=== PATIENT | male | born 1975 | race Caucasian/White ===

== ENCOUNTER 2018-07-15 11:43 | Emergency (ER) | payer MEDICAID ==
[2018-07-15 12:14] VITALS: BP 141/99
[2018-07-15] MEDS ORDERED: Sodium Chloride 0.9% 1,000 ML IV ONE (12:45)
[2018-07-15] MEDS ORDERED: Ondansetron 4 MG/2 ML SDV IV ONE ×2 (12:45→13:45)
[2018-07-15] MEDS ORDERED: HYDROmorphone 1 MG/ML Syringe IVPUSH ONE (12:45)
[2018-07-15] MEDS: Sodium Chloride 0.9% 10 ML Syringe FLUSH PRN ×2 (12:57→14:08)
[2018-07-15 13:23] LABS: ANION GAP 15.5; CHLORIDE,CL 99 mmol/L (101-111); SODIUM,NA 135 mmol/L (135-145)
[2018-07-15] MEDS ORDERED: Sucralfate 1 GM Tab PO ONE (13:44)
[2018-07-15] MEDS ORDERED: Pantoprazole 40 MG Vial IVPUSH ONE (13:44)
--- NOTE | 2018-07-15 15:22 | EDM.PDOC ---
Scribed by Gisella Luo 07/15/18 1518 for Devante Mueller MD ED HPI GENERAL MEDICAL PROBLEM - General Chief Complaint: Abdominal Pain Stated Complaint: stomach,fever Time Seen by Provider: 07/15/18 12:42 Source of Information: Reports: Patient, RN, RN Notes Reviewed History Limitations: Reports: No Limitations - History of Present Illness INITIAL COMMENTS - FREE TEXT/NARRATIVE: Patient presents to ER by POV with complaint of epigastric abdominal pain with nausea and vomiting. Patient was seen here 07/13/18 with similar complaint. He states he was improved following his last visit, but symptoms returned last evening but worse this morning. He cannot keep down any liquids or food. Denies fever or chills, radiating pain, diarrhea, constipation. Yesterday pt states he had a small loose dark stool. Onset Date: 07/14/18 Duration: Getting Worse Location: Reports: Abdomen Quality: Reports: Ache Severity: Severe Improves with: Reports: None Worsens with: Reports: None Associated Symptoms: Reports: No Other Symptoms Abdominal Pain Score (Numeric/FACES): 8 - Related Data Allergies Allergy/AdvReac Type Severity Reaction Status Date / Time No Known Allergies Allergy Verified 07/15/18 12:14 Home Meds: Home Meds Lisinopril 10 mg PO DAILY 09/05/17 [History] atorvaSTATin Calcium [Atorvastatin Calcium] 1 tab PO DAILY 07/13/18 [History] Past Medical History - Past Health History Medical/Surgical History: Denies Medical/Surgical History HEENT History: Reports: None Cardiovascular History: Reports: High Cholesterol, Hypertension Respiratory History: Reports: None Gastrointestinal History: Reports: None Genitourinary History: Reports: None Musculoskeletal History: Reports: None Neurological History: Reports: None Psychiatric History: Reports: None Endocrine/Metabolic History: Reports: None Hematologic History: Reports: None Immunologic History: Reports: None Oncologic (Cancer) History: Reports: None Dermatologic History: Reports: None - Infectious Disease History Infectious Disease History: Reports: Chicken Pox - Past Surgical History Head Surgeries/Procedures: Reports: None Other Cardiovascular Surgeries/Procedures: angiogram 6 months ago Social & Family History - Family History Family Medical History: Noncontributory - Tobacco Use Smoking Status *Q: Unknown Ever Smoked - Caffeine Use Caffeine Use: Reports: Coffee - Living Situation & Occupation Living situation: Reports: , with Family Occupation: Employed ED ROS GENERAL - Review of Systems Review Of Systems: ROS reveals no pertinent complaints other than HPI. ED EXAM, GI/ABD - Physical Exam Exam: See Below Exam Limited By: No Limitations General Appearance: Alert, WD/WN, No Apparent Distress Eyes: Bilateral: Normal Appearance Ears: Normal External Exam, Normal Canal, Hearing Grossly Normal, Normal TMs Nose: Normal Inspection, Normal Mucosa, No Blood Throat/Mouth: Normal Inspection, Normal Lips, Normal Teeth, Normal Gums, Normal Oropharynx, Normal Voice, No Airway Compromise Head: Atraumatic, Normocephalic Neck: Normal Inspection, Supple, Non-Tender, Full Range of Motion Respiratory/Chest: No Respiratory Distress, Lungs Clear, Normal Breath Sounds, No Accessory Muscle Use, Chest Non-Tender Cardiovascular: Normal Peripheral Pulses, Regular Rate, Rhythm, No Edema, No Gallop, No JVD, No Murmur, No Rub GI/Abdominal Exam: Normal Bowel Sounds, Soft, No Distention, No Abnormal Bruit, Tender (epigastric). No: Guarding, Rigid, Rebound (Male) Exam: Deferred Rectal (Males) Exam: Deferred Back Exam: Normal Inspection, Full Range of Motion, NT Extremities: Normal Inspection, Normal Range of Motion, Non-Tender, Normal Capillary Refill, No Pedal Edema Neurological: Alert, Oriented, Normal Cognition, Normal Gait, No Motor/Sensory Deficits Psychiatric: Normal Affect, Normal Mood Skin Exam: Warm, Dry, Intact, Normal Color, No Rash Course - Vital Signs Last Recorded V/S: Last Vital Signs Temp 35.9 C 07/15/18 12:10 Pulse 57 L 07/15/18 12:10 Resp 20 07/15/18 12:10 BP 141/99 H 07/15/18 12:10 Pulse Ox 100 07/15/18 12:10 - Orders/Labs/Meds Orders: Active Orders 24 hr Category Date Time Status Peripheral IV Care [RC] . DIRECTED Care 07/15/18 12:45 Active Sodium Chloride 0.9% [Saline Flush] Med 07/15/18 12:45 Active 10 ml FLUSH ASDIRECTED PRN Peripheral IV Insertion Adult [OM.PC] Stat Oth 07/15/18 12:44 Ordered Medication Orders Sodium Chloride (Saline Flush) 10 ml FLUSH ASDIRECTED PRN PRN Reason: Keep Vein Open Last Admin: 07/15/18 14:08 Dose: 10 ml Admin: 07/15/18 12:57 Dose: 10 ml Labs: Laboratory Tests 07/15/18 07/15/18 07/15/18 Range/Units 12:54 12:54 12:54 WBC 13.9 H (5.0-10.0) 10^3/uL RBC 5.12 (4.6-6.2) 10^6/uL Hgb 17.1 (14.0-18.0) g/dL Hct 47.1 (40.0-54.0) % MCV 92.0 (80-100) fL MCH 33.4 (27.0-34.0) pg MCHC 36.3 H (33.0-35.0) g/dL Plt Count 260 (150-450) 10^3/uL Neut % (Auto) 84.2 H (42.2-75.2) % Lymph % (Auto) 8.4 L (20.5-50.1) % [place] % (Auto) 7.1 (2-8) % Eos % (Auto) 0.1 L (1.0-3.0) % Baso % (Auto) 0.2 (0.0-1.0) % Sodium 135 (135-145) mmol/L Potassium 3.5 L (3.6-5.0) mmol/L Chloride 99 L (101-111) mmol/L Carbon Dioxide 24.0 (21.0-31.0) mmol/L Anion Gap 15.5 BUN 14 (7-18) mg/dL Creatinine 1.0 (0.6-1.3) mg/dL Est Cr Clr Drug Dosing 102.49 mL/min Estimated GFR (MDRD) > 60 BUN/Creatinine Ratio 14.00 Glucose 115 H (74-105) mg/dL Lactic Acid 1.6 (0.5-2.2) mmol/L Calcium 9.1 (8.4-10.2) mg/dl Total Bilirubin 0.9 (0.2-1.0) mg/dL AST 36 (10-42) IU/L ALT 19 (10-60) IU/L Alkaline Phosphatase 58 (42-121) IU/L Total Protein 7.8 (6.7-8.2) g/dl Albumin 4.6 (3.2-5.5) g/dl Globulin 3.2 Albumin/Globulin Ratio 1.44 Amylase 60 (28-100) U/L Lipase 38 (22-51) U/L Urine Color (YELLOW) Urine Appearance (CLEAR) Urine pH (5.0-9.0) Ur Specific [place] (1.005-1.030) Urine Protein (NEGATIVE) Urine Glucose (UA) (NEGATIVE) Urine Ketones (NEGATIVE) Urine Occult Blood (NEGATIVE) Urine Nitrite (NEGATIVE) Urine Bilirubin (NEGATIVE) Urine Urobilinogen (0.2-1.0) mg/dL Ur Leukocyte Esterase (NEGATIVE) Urine RBC /HPF Urine WBC (0-5/HPF) /HPF Ur Epithelial Cells /HPF Amorphous Sediment (0/HPF) /HPF Urine Bacteria (0-FEW/HPF) /HPF Urine Mucus /LPF Urine Opiates Screen (NEGATIVE) Ur Oxycodone Screen (NEGATIVE) Urine Methadone Screen (NEGATIVE) Ur Barbiturates Screen (NEGATIVE) U Tricyclic Antidepress (NEGATIVE) Ur Phencyclidine Scrn (NEGATIVE) Ur Amphetamine Screen (NEGATIVE) U Methamphetamines Scrn (NEGATIVE) Urine MDMA Screen (NEGATIVE) U Benzodiazepines Scrn (NEGATIVE) Urine Cocaine Screen (NEGATIVE) U Marijuana (THC) Screen (NEGATIVE) Ethyl Alcohol 5 mg/dL 07/15/18 07/15/18 Range/Units 14:17 14:17 WBC (5.0-10.0) 10^3/uL RBC (4.6-6.2) 10^6/uL Hgb (14.0-18.0) g/dL Hct (40.0-54.0) % MCV (80-100) fL MCH (27.0-34.0) pg MCHC (33.0-35.0) g/dL Plt Count (150-450) 10^3/uL Neut % (Auto) (42.2-75.2) % Lymph % (Auto) (20.5-50.1) % [place] % (Auto) (2-8) % Eos % (Auto) (1.0-3.0) % Baso % (Auto) (0.0-1.0) % Sodium (135-145) mmol/L Potassium (3.6-5.0) mmol/L Chloride (101-111) mmol/L Carbon Dioxide (21.0-31.0) mmol/L Anion Gap BUN (7-18) mg/dL Creatinine (0.6-1.3) mg/dL Est Cr Clr Drug Dosing mL/min Estimated GFR (MDRD) BUN/Creatinine Ratio Glucose (74-105) mg/dL Lactic Acid (0.5-2.2) mmol/L Calcium (8.4-10.2) mg/dl Total Bilirubin (0.2-1.0) mg/dL AST (10-42) IU/L ALT (10-60) IU/L Alkaline Phosphatase (42-121) IU/L Total Protein (6.7-8.2) g/dl Albumin (3.2-5.5) g/dl Globulin Albumin/Globulin Ratio Amylase (28-100) U/L Lipase (22-51) U/L Urine Color Dark yellow (YELLOW) Urine Appearance Slightly cloudy (CLEAR) Urine pH 6.0 (5.0-9.0) Ur Specific [place] >= 1.030 (1.005-1.030) Urine Protein 100 H (NEGATIVE) Urine Glucose (UA) Negative (NEGATIVE) Urine Ketones Trace H (NEGATIVE) Urine Occult Blood Negative (NEGATIVE) Urine Nitrite Negative (NEGATIVE) Urine Bilirubin Negative (NEGATIVE) Urine Urobilinogen 0.2 (0.2-1.0) mg/dL Ur Leukocyte Esterase Negative (NEGATIVE) Urine RBC 5-10 H /HPF Urine WBC 0-5 (0-5/HPF) /HPF Ur Epithelial Cells Rare /HPF Amorphous Sediment Moderate (0/HPF) /HPF Urine Bacteria Rare (0-FEW/HPF) /HPF Urine Mucus Many H /LPF Urine Opiates Screen Positive H (NEGATIVE) Ur Oxycodone Screen Negative (NEGATIVE) Urine Methadone Screen Negative (NEGATIVE) Ur Barbiturates Screen Negative (NEGATIVE) U Tricyclic Antidepress Negative (NEGATIVE) Ur Phencyclidine Scrn Negative (NEGATIVE) Ur Amphetamine Screen Negative (NEGATIVE) U Methamphetamines Scrn Negative (NEGATIVE) Urine MDMA Screen Negative (NEGATIVE) U Benzodiazepines Scrn Negative (NEGATIVE) Urine Cocaine Screen Negative (NEGATIVE) U Marijuana (THC) Screen Positive H (NEGATIVE) Ethyl Alcohol mg/dL Meds: Medications Generic Name Dose Route Start Last Admin Trade Name Freq PRN Reason Stop Dose Admin Sodium Chloride 10 ml 07/15/18 12:45 07/15/18 14:08 Saline Flush FLUSH 10 ml ASDIRECTED PRN Administration Keep Vein Open Discontinued Medications Generic Name Dose Route Start Last Admin Trade Name Alfonsoq PRN Reason Stop Dose Admin Hydromorphone HCl 1 mg 07/15/18 12:45 07/15/18 12:56 Dilaudid IVPUSH 07/15/18 12:46 1 mg ONETIME ONE Administration Sodium Chloride 1,000 mls @ 999 mls/hr 07/15/18 12:45 07/15/18 12:57 Normal Saline IV 07/15/18 13:45 999 mls/hr .BOLUS ONE Administration Ondansetron HCl 4 mg 07/15/18 12:45 07/15/18 12:56 Zofran IV 07/15/18 12:46 4 mg ONETIME ONE Administration Ondansetron HCl 4 mg 07/15/18 13:45 07/15/18 14:08 Zofran IV 07/15/18 13:46 4 mg ONETIME ONE Administration Pantoprazole Sodium 40 mg 07/15/18 13:44 07/15/18 14:08 Protonix Iv IVPUSH 07/15/18 13:45 40 mg ONETIME ONE Administration Sucralfate 1 gm 07/15/18 13:44 07/15/18 14:08 Carafate PO 07/15/18 13:45 1 gm ONETIME ONE Administration Departure - Departure Time of Disposition: 15:20 Disposition: Home, Self-Care 01 Condition: Good Clinical Impression: Gastritis Qualifiers: Gastritis type: unspecified gastritis Chronicity: acute Gastritis bleeding: without bleeding Qualified Code(s): K29.00 - Acute gastritis without bleeding - Discharge Information *PRESCRIPTION DRUG MONITORING PROGRAM REVIEWED*: No *COPY OF PRESCRIPTION DRUG MONITORING REPORT IN PATIENT ANTWON: No Instructions: Gastritis, Adult, [id number], Peptic Ulcer, [id number], [place] Diet Forms: ED Department Discharge Additional Instructions: Rx: Carafate 1g Rx: Omeprazole 40mg Follow up in clinic this week for recheck and consideration of referral for an upper endoscopy exam. - My Orders Last 24 Hours: My Active Orders 07/15/18 12:44 Peripheral IV Insertion Adult [OM.PC] Stat 07/15/18 12:45 Peripheral IV Care [RC] . DIRECTED Sodium Chloride 0.9% [Saline Flush] 10 ml FLUSH ASDIRECTED PRN - Assessment/Plan Last 24 Hours: My Active Orders 07/15/18 12:44 Peripheral IV Insertion Adult [OM.PC] Stat 07/15/18 12:45 Peripheral IV Care [RC] . DIRECTED Sodium Chloride 0.9% [Saline Flush] 10 ml FLUSH ASDIRECTED PRN I have read and agree with the documentation that has been completed regarding this visit. By signing this record, I attest that the documentation was completed in my physical presence and is an accurate record of the encounter.
== END 2018-07-15 15:40 | disposition home or self-care (01) ==
LOC: DL.ED 11:43
DX: K29.00 Acute gastritis without bleeding (principal); I10 Essential (primary) hypertension; Z79.899 Other long term (current) drug therapy
CPT/HCPCS: 36415; 80053; 80305; 81001; 82150; 82272; 83605; 83690; 85025; 96361; 96374; 96375; 99284; A9270; C9113; G0480; J1170; J2405; J7030

== ENCOUNTER 2018-07-17 17:59 | Emergency (ER) | payer MEDICAID ==
[2018-07-17] MEDS ORDERED: Acetaminophen/HYDROcodone 325-5 MG Tab PO ONE (18:00)
[2018-07-17] MEDS ORDERED: Metoclopramide 10 MG Tab PO ONE (18:00)
[2018-07-17] MEDS ORDERED: Metoclopramide 10 MG/2 ML SDV IVPUSH ONE (19:18)
[2018-07-17] MEDS ORDERED: Sodium Chloride 0.9% 10 ML Syringe FLUSH PRN (19:18)
[2018-07-17] MEDS ORDERED: Sodium Chloride 0.9% 1,000 ML IV ONE ×2 (19:36→19:41)
[2018-07-17 19:53] LABS: ANION GAP 15.4; CHLORIDE,CL 99 mmol/L (101-111); SODIUM,NA 136 mmol/L (135-145)
[2018-07-17] MEDS ORDERED: HYDROmorphone 1 MG/ML Syringe IVPUSH ONE (20:20)
--- NOTE | 2018-07-17 21:03 | EDM.PDOC ---
ED HPI GENERAL MEDICAL PROBLEM - General Chief Complaint: Gastrointestinal Problem Stated Complaint: STOMACH, FEVER, CAN'T KEEP ANYTHING DOWN Time Seen by Provider: 07/17/18 19:07 Source of Information: Reports: Patient, RN, RN Notes Reviewed History Limitations: Reports: No Limitations - History of Present Illness INITIAL COMMENTS - FREE TEXT/NARRATIVE: Patient presents to ER with complaint of nausea and vomiting. Patient has been in the ER twice on Monday and Monday. He had diarrhea on Monday and now he has constipation with small black jakub of stools. Last bowel movement was today between 3-4 p.m., green hard stool. He has had fever, chills, fast heart beat, and shortness of breath at times. No chest pains. His pain is a 9/10 epigastric. Onset: Gradual Duration: Getting Worse Location: Reports: Abdomen Quality: Reports: Ache Severity: Severe Improves with: Reports: None Worsens with: Reports: None Associated Symptoms: Reports: No Other Symptoms Upper Abdomen Pain Score (Numeric/FACES): 9 - Related Data Allergies Allergy/AdvReac Type Severity Reaction Status Date / Time No Known Allergies Allergy Verified 07/17/18 18:05 Home Meds: Home Meds Lisinopril 10 mg PO DAILY 09/05/17 [History] atorvaSTATin Calcium [Atorvastatin Calcium] 1 tab PO DAILY 07/13/18 [History] Dicyclomine [Bentyl] 10 mg PO ASDIRECTED PRN 07/17/18 [History] Omeprazole 20 mg PO DAILY 07/17/18 [History] Ondansetron HCl [Ondansetron] 4 mg PO ASDIRECTED PRN 07/17/18 [History] Sucralfate 1 gram PO QID 07/17/18 [History] Past Medical History - Past Health History Medical/Surgical History: Denies Medical/Surgical History HEENT History: Reports: None Cardiovascular History: Reports: High Cholesterol, Hypertension Respiratory History: Reports: None Gastrointestinal History: Reports: None Other Gastrointestinal History: vomiting Genitourinary History: Reports: None Musculoskeletal History: Reports: None Neurological History: Reports: None Psychiatric History: Reports: Anxiety Endocrine/Metabolic History: Reports: None Hematologic History: Reports: None Immunologic History: Reports: None Oncologic (Cancer) History: Reports: None Dermatologic History: Reports: None - Infectious Disease History Infectious Disease History: Reports: Chicken Pox - Past Surgical History Head Surgeries/Procedures: Reports: None Cardiovascular Surgical History: Reports: Other (See Below) (angiogram and stress test) Other Cardiovascular Surgeries/Procedures: angiogram 6 months ago Neurological Surgical History: Reports: Other (See Below) (back surgery on May 30.) Social & Family History - Family History Family Medical History: Noncontributory - Tobacco Use Smoking Status *Q: Current Every Day Smoker Years of Tobacco use: 26 Packs/Tins Daily: 0.5 - Caffeine Use Caffeine Use: Reports: Coffee - Alcohol Use Alcohol Use History: Yes Date/Time of Last Drink Comment: Last week Alcohol Use in Last Twelve Months: Yes - Recreational Drug Use Recreational Drug Type: Reports: Marijuana/Hashish (5 days ago) - Living Situation & Occupation Living situation: Reports: , with Family Occupation: Employed ED ROS GENERAL - Review of Systems Review Of Systems: ROS reveals no pertinent complaints other than HPI. ED EXAM, GI/ABD - Physical Exam Exam: See Below Exam Limited By: No Limitations General Appearance: Alert Eyes: Bilateral: Normal Appearance Ears: Normal External Exam, Normal Canal, Hearing Grossly Normal, Normal TMs Nose: Normal Inspection, Normal Mucosa, No Blood Throat/Mouth: Normal Inspection, Normal Lips, Normal Teeth, Normal Gums, Normal Oropharynx, Normal Voice, No Airway Compromise Head: Atraumatic, Normocephalic Neck: Normal Inspection, Supple, Non-Tender, Full Range of Motion Respiratory/Chest: Lungs Clear Cardiovascular: Normal Peripheral Pulses, Regular Rate, Rhythm, No Edema, No Gallop, No JVD, No Murmur, No Rub GI/Abdominal Exam: Tender (x4 quadrants epigastric) (Male) Exam: Deferred Rectal (Males) Exam: Deferred Back Exam: Normal Inspection, Full Range of Motion, NT Extremities: Normal Inspection, Normal Range of Motion, Non-Tender, Normal Capillary Refill, No Pedal Edema Neurological: Alert, Oriented, CN II-XII Intact, Normal Cognition, Normal Gait, Normal Reflexes, No Motor/Sensory Deficits Psychiatric: Anxious Skin Exam: Warm, Dry, Intact, Normal Color, No Rash Lymphatic: No Adenopathy Course - Vital Signs Last Recorded V/S: Last Vital Signs Temp 99.4 F 07/17/18 21:20 Pulse 59 L 07/17/18 21:20 Resp 18 07/17/18 21:20 BP 157/72 H 07/17/18 21:20 Pulse Ox 97 07/17/18 21:20 - Orders/Labs/Meds Labs: Laboratory Tests 07/17/18 07/17/18 07/17/18 Range/Units 19:25 19:25 19:25 WBC 9.2 (5.0-10.0) 10^3/uL RBC 4.85 (4.6-6.2) 10^6/uL Hgb 16.1 (14.0-18.0) g/dL Hct 43.9 (40.0-54.0) % MCV 90.5 (80-100) fL MCH 33.2 (27.0-34.0) pg MCHC 36.7 H (33.0-35.0) g/dL Plt Count 269 (150-450) 10^3/uL Neut % (Auto) 75.1 (42.2-75.2) % Lymph % (Auto) 16.6 L (20.5-50.1) % [place] % (Auto) 8.0 (2-8) % Eos % (Auto) 0.1 L (1.0-3.0) % Baso % (Auto) 0.2 (0.0-1.0) % Sodium 136 (135-145) mmol/L Potassium 3.4 L (3.6-5.0) mmol/L Chloride 99 L (101-111) mmol/L Carbon Dioxide 25.0 (21.0-31.0) mmol/L Anion Gap 15.4 BUN 9 (7-18) mg/dL Creatinine 0.9 (0.6-1.3) mg/dL Est Cr Clr Drug Dosing 113.88 mL/min Estimated GFR (MDRD) > 60 BUN/Creatinine Ratio 10.00 Glucose 106 H (74-105) mg/dL Lactic Acid 1.2 (0.5-2.2) mmol/L Calcium 9.2 (8.4-10.2) mg/dl Total Bilirubin 1.1 H (0.2-1.0) mg/dL AST 25 (10-42) IU/L ALT 16 (10-60) IU/L Alkaline Phosphatase 60 (42-121) IU/L Total Protein 7.1 (6.7-8.2) g/dl Albumin 4.3 (3.2-5.5) g/dl Globulin 2.8 Albumin/Globulin Ratio 1.54 Amylase 39 (28-100) U/L Lipase 26 (22-51) U/L Urine Color (YELLOW) Urine Appearance (CLEAR) Urine pH (5.0-9.0) Ur Specific [place] (1.005-1.030) Urine Protein (NEGATIVE) Urine Glucose (UA) (NEGATIVE) Urine Ketones (NEGATIVE) Urine Occult Blood (NEGATIVE) Urine Nitrite (NEGATIVE) Urine Bilirubin (NEGATIVE) Urine Urobilinogen (0.2-1.0) mg/dL Ur Leukocyte Esterase (NEGATIVE) Urine Opiates Screen (NEGATIVE) Ur Oxycodone Screen (NEGATIVE) Urine Methadone Screen (NEGATIVE) Ur Barbiturates Screen (NEGATIVE) U Tricyclic Antidepress (NEGATIVE) Ur Phencyclidine Scrn (NEGATIVE) Ur Amphetamine Screen (NEGATIVE) U Methamphetamines Scrn (NEGATIVE) Urine MDMA Screen (NEGATIVE) U Benzodiazepines Scrn (NEGATIVE) Urine Cocaine Screen (NEGATIVE) U Marijuana (THC) Screen (NEGATIVE) Ethyl Alcohol < 5 mg/dL 07/17/18 07/17/18 Range/Units 19:33 19:33 WBC (5.0-10.0) 10^3/uL RBC (4.6-6.2) 10^6/uL Hgb (14.0-18.0) g/dL Hct (40.0-54.0) % MCV (80-100) fL MCH (27.0-34.0) pg MCHC (33.0-35.0) g/dL Plt Count (150-450) 10^3/uL Neut % (Auto) (42.2-75.2) % Lymph % (Auto) (20.5-50.1) % [place] % (Auto) (2-8) % Eos % (Auto) (1.0-3.0) % Baso % (Auto) (0.0-1.0) % Sodium (135-145) mmol/L Potassium (3.6-5.0) mmol/L Chloride (101-111) mmol/L Carbon Dioxide (21.0-31.0) mmol/L Anion Gap BUN (7-18) mg/dL Creatinine (0.6-1.3) mg/dL Est Cr Clr Drug Dosing mL/min Estimated GFR (MDRD) BUN/Creatinine Ratio Glucose (74-105) mg/dL Lactic Acid (0.5-2.2) mmol/L Calcium (8.4-10.2) mg/dl Total Bilirubin (0.2-1.0) mg/dL AST (10-42) IU/L ALT (10-60) IU/L Alkaline Phosphatase (42-121) IU/L Total Protein (6.7-8.2) g/dl Albumin (3.2-5.5) g/dl Globulin Albumin/Globulin Ratio Amylase (28-100) U/L Lipase (22-51) U/L Urine Color Yellow (YELLOW) Urine Appearance Slightly cloudy (CLEAR) Urine pH 7.0 (5.0-9.0) Ur Specific [place] 1.015 (1.005-1.030) Urine Protein Negative (NEGATIVE) Urine Glucose (UA) Negative (NEGATIVE) Urine Ketones 15 H (NEGATIVE) Urine Occult Blood Negative (NEGATIVE) Urine Nitrite Negative (NEGATIVE) Urine Bilirubin Negative (NEGATIVE) Urine Urobilinogen 0.2 (0.2-1.0) mg/dL Ur Leukocyte Esterase Negative (NEGATIVE) Urine Opiates Screen Negative (NEGATIVE) Ur Oxycodone Screen Negative (NEGATIVE) Urine Methadone Screen Negative (NEGATIVE) Ur Barbiturates Screen Negative (NEGATIVE) U Tricyclic Antidepress Negative (NEGATIVE) Ur Phencyclidine Scrn Negative (NEGATIVE) Ur Amphetamine Screen Negative (NEGATIVE) U Methamphetamines Scrn Negative (NEGATIVE) Urine MDMA Screen Negative (NEGATIVE) U Benzodiazepines Scrn Negative (NEGATIVE) Urine Cocaine Screen Negative (NEGATIVE) U Marijuana (THC) Screen Positive H (NEGATIVE) Ethyl Alcohol mg/dL Meds: Medications Discontinued Medications Generic Name Dose Route Start Last Admin Trade Name Lior PRN Reason Stop Dose Admin Hydrocodone Bitart/Acetaminophen Confirm 07/17/18 21:10 07/17/18 21:19 [place] 325-5 Mg Administered 07/17/18 21:11 Not Given Dose 1 tab .ROUTE .STK-MED ONE Hydromorphone HCl 1 mg 07/17/18 20:20 07/17/18 20:30 Dilaudid IVPUSH 07/17/18 20:21 1 mg ONETIME ONE Administration Sodium Chloride 1,000 mls @ 999 mls/hr 07/17/18 19:36 07/17/18 19:37 Normal Saline IV 07/17/18 20:36 999 mls/hr .BOLUS ONE Administration Sodium Chloride 1,000 mls @ 999 mls/hr 07/17/18 19:41 07/17/18 20:31 Normal Saline IV 07/17/18 20:41 Not Given .BOLUS ONE Metoclopramide HCl 10 mg 07/17/18 19:18 07/17/18 19:31 Reglan IVPUSH 07/17/18 19:19 10 mg ONETIME ONE Administration Metoclopramide HCl Confirm 07/17/18 21:09 07/17/18 21:20 Reglan Administered 07/17/18 21:10 Not Given Dose 20 mg .ROUTE .STK-MED ONE Sodium Chloride 10 ml 07/17/18 19:18 07/17/18 19:31 Saline Flush FLUSH 10 ml ASDIRECTED PRN Administration Keep Vein Open Departure - Departure Time of Disposition: 21:01 Disposition: Home, Self-Care 01 Condition: Fair Clinical Impression: Abdominal pain - Discharge Information *PRESCRIPTION DRUG MONITORING PROGRAM REVIEWED*: No *COPY OF PRESCRIPTION DRUG MONITORING REPORT IN PATIENT ANTWON: No Instructions: Nausea and Vomiting, Adult, [id number], Abdominal Pain, Adult, [id number] Referrals: Naye Yee, DIRECTOR [employer] [Primary Care Provider] - Forms: ED Department Discharge Additional Instructions: Continue taking medications as previously prescribed RX: Reglan Drink clear liquids as tolerated, do not drink if you are nauseated Follow up with Naye Yee tomorrow for GI referral. [place] diet
[2018-07-17] MEDS ORDERED: Metoclopramide 10 MG Tab ONE (21:09)
[2018-07-17] MEDS ORDERED: Acetaminophen/HYDROcodone 325-5 MG Tab ONE (21:10)
[2018-07-17 21:20] VITALS: BP 157/72
== END 2018-07-17 21:18 | disposition home or self-care (01) ==
LOC: DL.ED 17:59
DX: R10.13 Epigastric pain (principal); F17.210 Nicotine dependence, cigarettes, uncomplicated; Z79.899 Other long term (current) drug therapy
CPT/HCPCS: 36415; 80053; 80305; 81003; 82150; 83605; 83690; 85025; 96361; 96374; 96375; 99283; G0480; J1170; J2765; J7030; A9270-GY

== ENCOUNTER 2018-07-18 13:15 | Emergency (ER) | payer MEDICAID ==
--- NOTE | 2018-07-18 14:00 | EDM.PDOC ---
ED HPI GENERAL MEDICAL PROBLEM - General Chief Complaint: Abdominal Pain Stated Complaint: ADOMINAL PAIN Time Seen by Provider: 07/18/18 13:59 Source of Information: Reports: Patient, Old Records, Provider (Naye Yee NP), RN, RN Notes Reviewed History Limitations: Reports: No Limitations - History of Present Illness INITIAL COMMENTS - FREE TEXT/NARRATIVE: Patient was sent from clinic because he was laying on the floor while waiting for his appointment for GI referral. Symptoms are the same as last week, with epigastric pain and vomiting. He admits that he has been smoking marijuana to alleviate the nausea but it seems to be making him worse. He has been soaking in a hot bath and that is the only thing that make him better. Denies fever, chills, diarrhea, or urinary symptom. Onset: Gradual Duration: Constant Location: Reports: Abdomen Quality: Reports: Ache Severity: Severe Improves with: Reports: None Worsens with: Reports: None Associated Symptoms: Reports: No Other Symptoms Abdomen Pain Score (Numeric/FACES): 6 - Related Data Allergies Allergy/AdvReac Type Severity Reaction Status Date / Time No Known Allergies Allergy Verified 07/17/18 18:05 Home Meds: Home Meds Lisinopril 10 mg PO DAILY 09/05/17 [History] atorvaSTATin Calcium [Atorvastatin Calcium] 1 tab PO DAILY 07/13/18 [History] Dicyclomine [Bentyl] 10 mg PO ASDIRECTED PRN 07/17/18 [History] Omeprazole 20 mg PO DAILY 07/17/18 [History] Ondansetron HCl [Ondansetron] 4 mg PO ASDIRECTED PRN 07/17/18 [History] Sucralfate 1 gram PO QID 07/17/18 [History] Past Medical History - Past Health History Medical/Surgical History: Denies Medical/Surgical History HEENT History: Reports: None Cardiovascular History: Reports: High Cholesterol, Hypertension Respiratory History: Reports: None Gastrointestinal History: Reports: None Other Gastrointestinal History: vomiting Genitourinary History: Reports: None Musculoskeletal History: Reports: None Neurological History: Reports: None Psychiatric History: Reports: None Endocrine/Metabolic History: Reports: None Hematologic History: Reports: None Immunologic History: Reports: None Oncologic (Cancer) History: Reports: None Dermatologic History: Reports: None - Infectious Disease History Infectious Disease History: Reports: Chicken Pox - Past Surgical History Head Surgeries/Procedures: Reports: None Other Cardiovascular Surgeries/Procedures: angiogram 6 months ago Social & Family History - Family History Family Medical History: Noncontributory - Tobacco Use Smoking Status *Q: Current Every Day Smoker Tobacco Use Within Last Twelve Months: Cigarettes - Caffeine Use Caffeine Use: Reports: Coffee - Alcohol Use Alcohol Use History: Yes Days Per Week of Alcohol Use: 7 Number of Drinks Per Day: 4 Total Drinks Per Week: 28 Alcohol Use Frequency: Daily - Recreational Drug Use Recreational Drug Type: Reports: Marijuana/Hashish - Living Situation & Occupation Living situation: Reports: , with Family Occupation: Employed ED ROS GENERAL - Review of Systems Review Of Systems: ROS reveals no pertinent complaints other than HPI. ED EXAM, GI/ABD - Physical Exam Exam: See Below Exam Limited By: No Limitations General Appearance: Alert, WD/WN, No Apparent Distress, Anxious Eyes: Bilateral: Normal Appearance, EOMI Nose: Normal Inspection, Normal Mucosa, No Blood Throat/Mouth: Normal Inspection, Normal Lips, Normal Teeth, Normal Gums, Normal Oropharynx, Normal Voice, No Airway Compromise Head: Atraumatic, Normocephalic Neck: Normal Inspection, Supple, Non-Tender, Full Range of Motion Respiratory/Chest: No Respiratory Distress, Lungs Clear, Normal Breath Sounds, No Accessory Muscle Use, Chest Non-Tender Cardiovascular: Normal Peripheral Pulses, Regular Rate, Rhythm, No Edema, No Gallop, No JVD, No Murmur, No Rub GI/Abdominal Exam: Normal Bowel Sounds, Soft, No Organomegaly, No Distention, No Abnormal Bruit, No Mass, Pelvis Stable, Tender (Epigastric tenderness) (Male) Exam: Deferred Rectal (Males) Exam: Deferred Back Exam: Normal Inspection Extremities: Normal Inspection Neurological: Alert, Oriented, CN II-XII Intact, Normal Cognition, Normal Gait, No Motor/Sensory Deficits Psychiatric: Normal Mood Skin Exam: Warm, Dry, Intact, Normal Color, No Rash Course - Vital Signs Last Recorded V/S: Last Vital Signs Temp 36.7 C 07/18/18 13:30 Pulse 98 07/18/18 13:30 Resp 18 07/18/18 13:30 BP 183/70 H 07/18/18 13:30 Pulse Ox 98 07/18/18 13:30 - Orders/Labs/Meds Orders: Active Orders 24 hr Category Date Time Status Peripheral IV Care [RC] . DIRECTED Care 07/18/18 14:10 Active Abdomen 2V AP Upright Decub [CR] Urgent Exams 07/18/18 14:17 Taken Sodium Chloride 0.9% [Saline Flush] Med 07/18/18 14:10 Active 10 ml FLUSH ASDIRECTED PRN Peripheral IV Insertion Adult [OM.PC] Stat Oth 07/18/18 14:10 Ordered Medication Orders Sodium Chloride (Saline Flush) 10 ml FLUSH ASDIRECTED PRN PRN Reason: Keep Vein Open Last Admin: 07/18/18 14:48 Dose: 10 ml Meds: Medications Generic Name Dose Route Start Last Admin Trade Name Freq PRN Reason Stop Dose Admin Sodium Chloride 10 ml 07/18/18 14:10 07/18/18 14:48 Saline Flush FLUSH 10 ml ASDIRECTED PRN Administration Keep Vein Open Discontinued Medications Generic Name Dose Route Start Last Admin Trade Name Freq PRN Reason Stop Dose Admin Diphenhydramine HCl 25 mg 07/18/18 14:10 07/18/18 14:47 Benadryl IVPUSH 07/18/18 14:11 25 mg ONETIME ONE Administration Diphenhydramine HCl 25 mg 07/18/18 16:07 Benadryl IVPUSH 07/18/18 16:08 ONETIME ONE Sodium Chloride 1,000 mls @ 999 mls/hr 07/18/18 14:10 07/18/18 14:46 Normal Saline IV 07/18/18 15:10 999 mls/hr .BOLUS ONE Administration Ketorolac Tromethamine 30 mg 07/18/18 14:14 07/18/18 14:47 Toradol IVPUSH 07/18/18 14:15 30 mg ONETIME ONE Administration Lorazepam 1 mg 07/18/18 14:16 07/18/18 14:48 Ativan IVPUSH 07/18/18 14:17 1 mg ONETIME ONE Administration Metoclopramide HCl 10 mg 07/18/18 14:10 07/18/18 14:46 Reglan IVPUSH 07/18/18 14:11 10 mg ONETIME ONE Administration Ondansetron HCl 4 mg 07/18/18 16:07 Zofran IV 07/18/18 16:08 ONETIME ONE - Radiology Interpretation Free Text/Narrative:: [facility] Final Radiology Report Call: [phone] assistance Online chat: [email or web address] Name: BENITO BURTON Age: 42Years M Date: 07/18/2018 SSN: -- : [id number] Study: XR ABDOMEN 2 VIEWS Requesting Physician: KENDALL REYNOSO Images: 1 Addl Studies: Provided Clinical History: Contrast: Contrast Medium: Contrast Amount: Contrast Method: CONFIDENTIALITY STATEMENT This report is intended only for use by the referring physician, and only in accordance with law. If you received this in error, call [phone]. Page 1 of 1 EXAM: XR Abdomen, 2 Views EXAM DATE/TIME: 07/18/2018 2:19 PM CLINICAL HISTORY: 42 years old, male; Pain; Abdominal pain; Generalized; Patient HX: Abd pain possible constipation TECHNIQUE: Frontal view of the abdomen/pelvis with upright view of the abdomen. COMPARISON: CT Abdomen Pelvis w Cont 07/13/2018 6:32 PM FINDINGS: Gastrointestinal tract: Normal. No bowel dilation. Intraperitoneal space: Normal. No free air. Bones/joints: Unremarkable for age. IMPRESSION: No acute findings. Thank you for allowing us to participate in the care of your patient. Dictated and Authenticated by: Bob Ni MD 07/18/2018 3:03 PM Central Time ([place] & [place]) - Re-Assessments/Exams Free Text/Narrative Re-Assessment/Exam: 07/18/18 16:32 I discussed the case with Naye Yee NP, she has made a referral for the pt to GI and will contact the pt with the referral information. Departure - Departure Time of Disposition: 16:37 Disposition: Home, Self-Care 01 Condition: Fair Clinical Impression: Cannabinoid hyperemesis syndrome, Epigastric abdominal pain - Discharge Information *PRESCRIPTION DRUG MONITORING PROGRAM REVIEWED*: No *COPY OF PRESCRIPTION DRUG MONITORING REPORT IN PATIENT ANTWON: No Instructions: Cannabinoid Hyperemesis Syndrome Forms: ED Department Discharge Additional Instructions: Abstain from cannabis use. Take hot shower or soak in hot bath, and/or use heating pad on stomach as needed for pain. Continue current medications as prescribed. Naye Yee NP has made a referral for you to see a GI specialist, and will contact you with the referral information. - My Orders Last 24 Hours: My Active Orders 07/18/18 14:10 Peripheral IV Care [RC] . DIRECTED Sodium Chloride 0.9% [Saline Flush] 10 ml FLUSH ASDIRECTED PRN Peripheral IV Insertion Adult [OM.PC] Stat 07/18/18 14:17 Abdomen 2V AP Upright Decub [CR] Urgent - Assessment/Plan Last 24 Hours: My Active Orders 07/18/18 14:10 Peripheral IV Care [RC] . DIRECTED Sodium Chloride 0.9% [Saline Flush] 10 ml FLUSH ASDIRECTED PRN Peripheral IV Insertion Adult [OM.PC] Stat 07/18/18 14:17 Abdomen 2V AP Upright Decub [CR] Urgent
[2018-07-18] MEDS ORDERED: diphenhydrAMINE 50 MG/ML SDV IVPUSH ONE ×2 (14:10→16:07)
[2018-07-18] MEDS ORDERED: Sodium Chloride 0.9% 1,000 ML IV ONE (14:10)
[2018-07-18] MEDS ORDERED: Sodium Chloride 0.9% 10 ML Syringe FLUSH PRN (14:10)
[2018-07-18] MEDS ORDERED: Metoclopramide 10 MG/2 ML SDV IVPUSH ONE (14:10)
[2018-07-18 14:13] VITALS: BP 183/70
[2018-07-18] MEDS ORDERED: Ketorolac 30 MG/ML SDV IVPUSH ONE (14:14)
[2018-07-18] MEDS ORDERED: LORazepam 2 MG/ML Syringe IVPUSH ONE (14:16)
[2018-07-18] MEDS ORDERED: Ondansetron 4 MG/2 ML SDV IV ONE (16:07)
== END 2018-07-18 17:00 | disposition home or self-care (01) ==
LOC: DL.ED 13:15
DX: R10.13 Epigastric pain (principal); F12.188 Cannabis abuse with other cannabis-induced disorder; R11.10 Vomiting, unspecified; I10 Essential (primary) hypertension; F17.210 Nicotine dependence, cigarettes, uncomplicated
CPT/HCPCS: 74021; 96365; 96375; 96376; 99284; J1200; J1885; J2060; J2405; J2765; J7030